=== PATIENT | female | born 1980 | race Caucasian/White ===

== ENCOUNTER 2025-03-25 23:22 | Emergency (ER) | payer BC ==
[~2025-03-25] VITALS: Ht 170.2 cm; Wt 63.5 kg
[2025-03-25 23:47] VITALS: TEMP 98.5
[2025-03-26 01:15] VITALS: BP 103/72; O2SAT 99
== END 2025-03-26 01:15 | disposition home or self-care (01) ==
LOC: ER 23:37
DX: M79.661 Pain in right lower leg (principal); Z79.3 Long term (current) use of hormonal contraceptives
CPT/HCPCS: 93971-TC